=== PATIENT | female | born 1995 | race Caucasian/White ===

== ENCOUNTER 2025-07-14 20:27 | Emergency (ER) | payer OTHER, SELFPAY ==
[2025-07-14 20:31] VITALS: BP 133/86; PULSE 84; RESP 18; TEMP 36.7; O2SAT 99
--- NOTE | 2025-07-14 20:43 | W.ED.GENAD ---
Discharge Plan Disposition Patient Disposition: Home Condition: Stable Discharge Details Clinical Impression: Effusion of left elbow Primary Care Provider: None,None ED Provider: Leo Yin Home Meds and New Rx's Prescriptions: New ketorolac 10 mg tablet 10 mg PO QID 5 Days Qty: 20 0RF Rx Instructions: maximum total duration of 5 days from all oral, intranasal, or parenteral formulations Discharge Instructions Instructions: Ketorolac (Systemic), Elbow Sprain ED, Elbow Fracture, Adult ED Additional Instructions: You were seen in the emergency department for your elbow injury, due to the severe mechanism of injury and presence of effusion in the elbow joint we are treating for a possible fracture with immobilization in a long-arm splint and a sling with repeat x-ray next week, please follow-up with orthopedics, you are on their follow-up list. Please take 1000 mg of Tylenol every 6 hours, senior living between Tylenol dosings take the 10 mg Toradol tablets also on a 6-hour schedule, you can only take this medication for 5 days then stop substitute for 100 mg of ibuprofen in its place, please rest, ice, compress and elevate often, return for any signs of neurovascular compromise. Stand Alone Forms: Portal Information Referrals: [facility] [Provider Group] HPI General Date/Time Provider Initiated Documentation: 07/14/25 20:32. 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 Patient is R-hand dominant. Quality described as pain through the foerarm and elbow, no radiation to numbness/tingling, skin changes, open lesion, bruising, other trauma, headstrike, or neck pain. Severity is described as severe. Palliating factors include took 1 Midol prior to arrival. Provoking factors include movement. Patient not anticoagulated. Related Data Home Medications Medication Instructions Recorded Confirmed ketorolac 10 mg tablet 10 mg PO QID 5 days #20 tabs 07/14/25 Previous Rx's Medication Instructions Recorded ketorolac 10 mg tablet 10 mg PO QID 5 days #20 tabs 07/14/25 Allergies Allergy/AdvReac Type Severity Reaction Status Date / Time No Known Allergies Allergy Unverified 07/14/25 20:35 General Stated Complaint: Orthopedic LALI: 3 Review of Systems All systems reviewed & are unremarkable except as noted in HPI and below Exam Narrative Exam Narrative: GENERAL APPEARANCE: Well-nourished, non-toxic, awake and alert, atraumatic, no acute distress. SKIN: Warm, pink, dry, intact, without rashes/lesions/ulcerations. HEAD: Normocephalic, atraumatic, normal hair distribution for gender/age. EYES: Normal conjunctiva, no exudates on lids/lashes. ENT: Nares patent, no circumoral cyanosis, no facial swelling NECK: Supple, trachea midline, painless cervical ROM. LUNGS/CHEST: Non-labored respirations, normal A/P diameter, symmetrical expansion, no chest wall deformity HEART (CV/PV): Regular rate, no peripheral edema, no JVD. ABDOMEN: Soft, non-distended, no guarding. MSK: L elbow tenderness and swelling, no crepitus or ecchymosis, forearm tenderness without crepitus, L radial pulse 2+, sensation intact fingers, brisk capillary refill, finger ab/adduction causes pain in forearm/elbow, humerus stable, no shoulder tenderness, no cyanosis, spine midline without tenderness, normal curvature. NEURO: Mental Status AAOx4 - alert to person, place, time, events No facial droop, no forehead involvement. Motor: No focal weakness - strength 5/5 in bilateral UEs and LEs, proximal and distal, symmetric. Sensory: sensation intact to light touch globally. Gait normal: patient ambulated without ataxia into ED room. PSYCH: euthymic, cooperative, pleasant, appropriate speech Course Vital Signs Vital signs: Vital Signs Temperature 36.7 C 07/14/25 20:31 Pulse 84 07/14/25 20:31 Respiratory Rate 18 07/14/25 20:31 Blood Pressure 133/86 07/14/25 20:31 Pulse Oximetry 99 07/14/25 20:31 Temperature 36.7 C 07/14/25 20:31 Pulse 84 07/14/25 20:31 Respiratory Rate 18 07/14/25 20:31 Blood Pressure 133/86 07/14/25 20:31 Pulse Oximetry 99 07/14/25 20:31 Oxygen Delivery Method Room Air 07/14/25 20:31 Oxygen Flow Rate 0 07/14/25 20:31 Pain Level 9 07/14/25 20:31 Procedure Orthopedic Splinting/Casting Provider that performed the procedure: Leo Yin Standard Time Out Performed: No Patient Consented: Verbally Side: left Upper Extremity Injury Location: elbow Upper Extremity Immobilizer: sling/shoulder immobilizer and posterior splint Procedure Description/Note: Padded the patient's left upper extremity, placed in a posterior long-arm splint and then shoulder immobilizer, no complications, neurovascularly intact pre and post splint application Medical Decision Making This dictation utilizes [id number] dictation software and may contain unedited grammatical errors. 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 Patient is R-hand dominant. Quality described as pain through the foerarm and elbow, no radiation to numbness/tingling, skin changes, open lesion, bruising, other trauma, headstrike, or neck pain. Severity is described as severe. Palliating factors include took 1 Midol prior to arrival. Provoking factors include movement. Patients' medical history: Negative, otherwise healthy. Family and social history: Works as a performer at [employer] Pertinent exam findings / vital signs include L elbow tenderness and swelling, no crepitus or ecchymosis, forearm tenderness without crepitus, L radial pulse 2+, sensation intact fingers, brisk capillary refill, finger ab/adduction causes pain in forearm/elbow, humerus stable, no shoulder tenderness. Differential / pathologies of concern include fracture, dislocation, sprain or strain. Diagnostic studies of: - XR L elbow, XR L forearm. - shows effusion, possible occult fracture, treating with immobilization until f/u can be attained Interventions of: - 30 mg IM Toradol, 500 mg Tylenol. - Rx for toradol, one dose oxycodone here ED Course/Assessment/Plan: 22-year-old female suffered a fall while on stilts landing on outstretched left arm, having difficulty straightening it and there is an effusion of the elbow but no visualized fracture, I am treating as a fracture and arranging them for orthopedic follow-up for possible repeat x-ray versus CT scan at that time, in the meantime they will perform RICE therapy and therapeutic dosing of Tylenol and Toradol with strict return for any neurovascular compromise. Findings not consistent with neurovascular compromise, occult fracture possible. Disposition of Effusion of Left Elbow. Patient verbalized understanding of the plan and return to ED criteria and engaged in shared decision making. Medical Records Medical records reviewed: Yes I reviewed the patient's medical records. Imaging Data Radiologic Study: Attestation: I personally reviewed and interpreted this imaging study as follows: Imaging: X-Ray Radiologist's impression: Exam: XR Left Elbow Exam date and time: 07/14/2025 9:13 PM Age: 30 years old Clinical indication: Pain; Elbow; Left; Fall from 3 feet TECHNIQUE: Imaging protocol: Radiologic exam of the left elbow. Views: 3 or more views. COMPARISON: CR XR FOREARM LT 07/14/2025 9:11 PM FINDINGS: Bones/joints: There is elevation of the anterior and posterior fat pad consistent with large elbow joint effusion. No displaced fracture visualized. Soft tissues: Unremarkable. IMPRESSION: Large elbow joint effusion without displaced fracture visualized. Findings are suspicious for occult fracture. Consider cross-sectional imaging or short interval repeat study to evaluate for periosteal reaction in the setting of early interval healing. Dictated and Authenticated by: Tri Craig MD. Radiologic Study #2: Attestation: I personally reviewed and interpreted this imaging study as follows: Imaging: X-Ray Radiologist's impression: Exam: XR Left Forearm Exam date and time: 07/14/2025 9:11 PM Age: 30 years old Clinical indication: Pain; Lower or forearm; Left; Fall from 3 feet TECHNIQUE: Imaging protocol: Radiologic exam of the left forearm. Views: 2 views. COMPARISON: No relevant prior studies available. FINDINGS: Bones/joints: There is elevation of the anterior fat pad consistent with joint effusion. No displaced fracture visualized. Soft tissues: Unremarkable. IMPRESSION: 1. No displaced fracture. 2. Elbow joint effusion. Findings may be associated with an occult fracture. Dictated and Authenticated by: Tri Craig MD. PFSH All Active Problems (Updated 07/14/25 @ 22:00 by KAM Enamorado) Effusion of left elbow (Acute) Social History Smoking/Tobacco Use Status: Never Smoking risk assessment performed?: Yes Alcohol Intake: current Substance use type: does not use
--- NOTE | 2025-07-14 20:45 | DI.RAD_ITS ---
Exam(s) XR ELBOW LT COMPLETE XR FOREARM LT EXAM: XR FOREARM LT CLINICAL HISTORY: fall from 3 feet. TECHNIQUE: 2D digital imaging was performed. Two views of the forearm. Three views of the wrist COMPARISON: CR,XR XR ELBOW LT COMPLETE from 07/14/2025 FINDINGS: BONES: There is a nondisplaced fracture through the radial head. No involvement of the articular surface. No bony destructive lesion is seen. JOINTS: There is a elbow joint effusion. The visualized portions of the wrist is unremarkable. SOFT TISSUE: Normal. IMPRESSION: Nondisplaced fracture of the radial head. Joint effusion. The preliminary [facility] report was reviewed. DATA REPOSITORY: RADIATION DOSE DELIVERED:
--- NOTE | 2025-07-14 21:30 | DI.[facility]_ITS ---
PROCEDURE INFORMATION: Exam: XR Left Elbow Exam date and time: 07/14/2025 9:13 PM Age: 30 years old Clinical indication: Pain; Elbow; Left; Fall from 3 feet TECHNIQUE: Imaging protocol: Radiologic exam of the left elbow. Views: 3 or more views. COMPARISON: CR XR FOREARM LT 07/14/2025 9:11 PM FINDINGS: Bones/joints: There is elevation of the anterior and posterior fat pad consistent with large elbow joint effusion. No displaced fracture visualized. Soft tissues: Unremarkable. IMPRESSION: Large elbow joint effusion without displaced fracture visualized. Findings are suspicious for occult fracture. Consider cross-sectional imaging or short interval repeat study to evaluate for periosteal reaction in the setting of early interval healing. Dictated and Authenticated by: Tri Craig MD. Orderin Annamaria Bailey MD
--- NOTE | 2025-07-14 21:32 | DI.[facility]_ITS ---
PROCEDURE INFORMATION: Exam: XR Left Forearm Exam date and time: 07/14/2025 9:11 PM Age: 30 years old Clinical indication: Pain; Lower or forearm; Left; Fall from 3 feet TECHNIQUE: Imaging protocol: Radiologic exam of the left forearm. Views: 2 views. COMPARISON: No relevant prior studies available. FINDINGS: Bones/joints: There is elevation of the anterior fat pad consistent with joint effusion. No displaced fracture visualized. Soft tissues: Unremarkable. IMPRESSION: 1. No displaced fracture. 2. Elbow joint effusion. Findings may be associated with an occult fracture. Dictated and Authenticated by: Tri Craig MD. Orderin Annamaria Bailey MD
[2025-07-14] MEDS: Acetaminophen 500 MG TAB PO (21:41)
[2025-07-14] MEDS: oxyCODONE 5 MG TAB PO (22:04)
== END 2025-07-14 22:05 | disposition home or self-care (01) ==
PROVIDERS: Emergency Provider Physician Assistant
DX: M25.422 Effusion, left elbow; W17.89XA Other fall from one level to another, initial encounter
CPT/HCPCS: 99284 ×2; 29105; 81025; 73080; 73090; J1885

== ENCOUNTER 2025-08-06 15:05 | Outpatient (CLI) | payer OTHER, SELFPAY ==
--- NOTE | 2025-08-06 13:00 | DI.RAD_ITS ---
Exam(s) XR ELBOW LT LIMITED EXAM: XR ELBOW LT LIMITED CLINICAL HISTORY: F/U FRACTURE. TECHNIQUE: 2D digital imaging was performed. COMPARISON: CR,XR XR ELBOW LT COMPLETE from 07/14/2025 FINDINGS: Two views There is stable unchanged appearance of the fracture site in the lateral aspect of the radial head-neck. No displacement. No depression. No loose bodies. The size of the joint effusion has diminished. No osseous lesions. IMPRESSION: Stable satisfactory appearance of nondisplaced radial head-neck fracture. DATA REPOSITORY: RADIATION DOSE DELIVERED:
== END 2025-08-06 15:06 | disposition home or self-care (01) ==
LOC: DIORS 15:05
PROVIDERS: Visit Provider Student in an Organized Health Care Education/Training Program
DX: S52.132D Displaced fracture of neck of left radius, subsequent encounter for closed fracture with routine healing (principal); X58.XXXD Exposure to other specified factors, subsequent encounter
CPT/HCPCS: 73070